=== PATIENT | male | born 1950 | race Two or more races ===

== ENCOUNTER 2020-12-04 23:24 | Observation (INO) | payer MEDICARE, SELFPAY ==
--- NOTE | 2020-12-04 23:41 | HP.PCM.HOS_ITS ---
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 He does report that he has had similar but less severe episodes over the last several weeks to months with activity, lasting ~ 30 minutes and completely resolving. Work-up in the OSH ED included: VS: AF, initially mildly tachycardic 113-->now HR 74, BP intially 162/100-->now 155/82, 96% on RA. CBC: WBC 10.8, Hgb 16.1, Plts 255 without marked L shift. CMP: Na 140, K 4.4, BUN/Cr 20/1.01, glucose 274, unremarkable hepatic profile. Trop: initial 41 high sensitivity (within normal)-->repeat after 2 hours 66 high sensitivity (normal range 0-76). EKG: ST with ? trigeminy, frequent PVCs, improved during admission with mild ST depression V4-V6 similar to prior comparison 09/2020 (asymptomatic HTN evaluation). CXR: No acute cardiopulmonary findings. BNP: 613 (Chronic trace BL LE edema). COVID PCR: negative and s/p vacciation double series. D-dimer: 200 (normal cutoff 230) Medications: SL NG trial (1 with resolution), already had ASA prior to arrival and NS. [facility] Medical History (Updated 12/05/20 @ 00:[address] Binta Mederos MD) Diabetes mellitus type II, uncontrolled Fracture of right hip requiring operative repair History of prostate cancer HLD (hyperlipidemia) HTN (hypertension) Obesity Family History (Updated 12/05/20 @ 00:[address] Binta Mederos MD) Mother Hypertension Father Hypertension CAD (coronary artery disease), Onset Age: 64 [place] with CAD Surgical History (Updated 12/05/20 @ 00:[address] Binta Mederos MD) History of transurethral resection of prostate Social History (Updated 12/05/20 @ 00:[address] Binta Mederos MD) household members: spouse and other details: Currently living separate secondary to COVID risk with hx brain cancer Smoking Status: Never smoker alcohol intake: never substance use type: does not use ROS ROS Narrative Admission Review of Systems: CONSTITUTIONAL: No weight loss, fever, chills, + weakness or fatigue. HEENT: Eyes: No visual loss, blurred vision, double vision or yellow sclerae. Ears, Nose, Throat: No hearing loss, sneezing, congestion, runny nose or sore throat. SKIN: No rash or itching, lesions, wounds. CARDIOVASCULAR: + chest pain, chest pressure or chest discomfort, edema, No palpitations, orthopnea, syncopal events. RESPIRATORY: + shortness of breath, No cough or sputum, wheezing, hemoptysis. GASTROINTESTINAL: No anorexia, nausea, vomiting or diarrhea, abdominal pain, melena, BRBPR. GENITOURINARY: No dysuria, frequency, urgency or retention. NEUROLOGICAL: No headache, dizziness, syncope, paralysis, ataxia, numbness or tingling in the extremities, focal weakness, change in bowel or bladder control, seizure. MUSCULOSKELETAL: No muscle, back pain, joint pain or stiffness. HEMATOLOGIC: No anemia, bleeding or bruising. LYMPHATICS: No enlarged nodes. No history of splenectomy. PSYCHIATRIC: + history of depression or anxiety. ENDOCRINOLOGIC: No reports of sweating, cold or heat intolerance. No polyuria or polydipsia. ALLERGIES: No history of asthma, hives, eczema or rhinitis. Physical Exam Narrative Physical Examination: General: awake, alert, oriented x 3 and cooperative, seated upright in the PCU bed in no apparent distress, no chest pain currently. Skin: normal color, turgor, no icterus, cyanosis. HEENT: AT/NC, EOMI, PERRLA, MMM, no carotid bruits or JVD noted. Lungs: CTA bilaterally, moderate effort, mild decrease BL bases, no rales, ronchi or wheezing. Heart: Regular rate and rhythm; no gallop, rub audible. Abdomen: soft, obese, NTTP, ND, distant normal BS, no HSM. Extremities: no cyanosis, no clubbing, mild BL 1+ ankle to distal hampton chronic edema, hairless but he reports having shaved. Neurological: patient awake, alert, oriented x 3, cognitive function intact; pupils equally reactive to light and accommodation, cranial nerves II-XII grossly normal, moving all 4 extremities, no focal deficits, strength preserved. Psychiatric: affect appears normal, no acute evidence of depressive or anxiety feelings. Assessment & Plan Assessment/Plan (1) Chest pain: QUALIFIERS: Chest pain type: unspecified Qualified Code(s): R07.9 - Chest pain, unspecified PLAN: The patient is a 69 y/o M w/ PMHx: HTN, HLD, Diabetes mellitus type II, Bipolar disorder, Hx prostate CA s/p treatment in remission, no CAD hx who presents to the [facility] as direct admission from [facility] on 12/04/20 with history ongoing episodes intermittent chest pain. 1. Chest Pain: EKG in OSH ED w/ ST with ? trigeminy, frequent PVCs, improved during admission with mild ST depression V4-V6 similar to prior comparison 09/2020, CXR w/ no acute cardiopulmonary findings, initial 41 high sensitivity (within normal)-->repeat after 2 hours 66 high sensitivity (normal range 0-76). Will admit to PCU, place on a monitored bed to assure no acute myocardial inf arction with serial cardiac enzymes and EKGs. If repeat serial enzymes and EKG remain unremarkable will obtain AM cardiac stress testing. Mag pending. FLP in AM. ASA, NG, morphine. 2. Hypertension: Continue home regimen including losartan, Lasix with hold parameters, altered and add regimen pending continue BP trending is elevated at outside facility, PRN hydralazine. 3. Hyperlipidemia: Continue home statin regimen. AM FLP. 4. Diabetes mellitus type II: Notes not on regimen, has upcoming PCP visit to discuss treatment, will allow ADA diet until NPO at midnight, HgBA1c requested, accu checks w/ ISS. 5. Bipolar disorder: Will continue home depakote regimen, obtain level to be cautious. 6. History of Prostate CA: s/p resection, in remission. 7. DVT prophylaxis: SCDs, lovenox. Visit Charges OBSV E&M: 89533 Initial observation care L3
[2020-12-04 23:45] VITALS: BP 187/87; PULSE 87; RESP 18; TEMP 36.8; O2SAT 97
[2020-12-05] VITALS (16 sets, daily range): BP systolic 126–182; BP diastolic 50–132; PULSE 61–96; RESP 16–18; TEMP 36.4–36.7; O2SAT 94–99; BMI 38.9
--- NOTE | 2020-12-05 00:23 | EKG12_ITS ---
Test Reason : CP ADMIT Blood Pressure : / mmHG Vent. Rate : 084 BPM Atrial Rate : 084 BPM P-R Int : 202 ms QRS Dur : 086 ms QT Int : 390 ms P-R-T Axes : 064 068 082 degrees QTc Int : 460 ms Sinus rhythm with Premature supraventricular complexes Otherwise normal ECG No previous ECGs available Confirmed by STACIA WHATLEY, JAMES ([id number]), dictionary editor RIKA ALVAREZ ([id number]) on 12/10/2020 10:24:29 A M Referred By: GRISELDA Confirmed By:PETER PALOMO MD
[2020-12-05 00:38] LABS: Magnesium 2.2 mg/dL (1.6-2.6)
[2020-12-05] MEDS: Famotidine 20 MG Tablet PO (01:10)
[2020-12-05 01:30] LABS: Hemoglobin A1c 8.6 % (3.8-5.6)
[2020-12-05 01:37] LABS: Valproic Acid (Depakene) Level 23 ug/mL (50-100)
[2020-12-05 02:04] LABS: Prothrombin Time (Protime)PT. 12.3 SECONDS (11.7-14.9)
[2020-12-05 02:05] LABS: Partial Thromboplast Time 31.9 Seconds (24.1-36.2)
[2020-12-05] MEDS: hydrALAZINE 20 MG/ML Vial 10 MG IV (03:06)
[2020-12-05] MEDS: 0.9% Saline Lock 10 ML Syringe IV (03:06)
[2020-12-05] MEDS: Aspirin 81 MG TAB.CHEW PO (06:37)
[2020-12-05] MEDS: Losartan Potassium 50 MG Tablet PO (06:37)
[2020-12-05 06:41] LABS: Absolute Neutrophil Count 4.7 X10^3/uL (2.0-7.7); Basophil# 0.06 X10^3/uL; Basophil% 0.9 % (0-1); Eosinophil# 0.12 X10^3/uL; Eosinophils% 1.8 % (0-5); Hematocrit 46.9 % (40-54); Hemoglobin 15.1 g/dL (13.0-16.5); Mean Corp Hgb Conc 32.2 g/dL (32-36); Mean Corpuscular Hgb 28.9 pg (27.0-32.0); Mean Corpuscular Volume 89.8 fL (80-94); Mean Platelet Vol. 10.3 fl (6.2-12.0); NRBC Flagged by Analyzer 0 % (0-5); Neutrophil # 4.65 X10^3/uL (2.7-7.7); Platelet Count 216 K/mm3 (150-450); RBC Distribution Width CV 13.7 % (11.6-14.6); RBC Distribution Width SD 44.9 fl (35.1-43.9); Red Blood Count 5.22 M/mm3 (4.6-6.2); White Blood Count 6.7 K/mm3 (4.4-11.0)
[2020-12-05 06:45] LABS: Bedside Glucose 195 mg/dL (70-110)
[2020-12-05 07:32] LABS: ALB/GLOB Ratio 0.9 RATIO (0.9-2.4); AST(SGOT) 27 U/L (15-37); Alanine Aminotransfer ALT/SGPT 46 U/L (16-61); Albumin, Serum 3.7 g/dL (3.2-5.0); Alkaline Phosphatase 84 U/L (45-117); Anion Gap 5 (5-15); BUN 20 mg/dL (7-18); BUN/Creat Ratio 21.4 RATIO (10-20); Calcium,Total 9.4 mg/dL (8.5-10.1); Chloride 102 mmol/L (98-107); Cholesterol 138 mg/dL (200); Creatinine, Serum 0.93 mg/dL (0.70-1.30); EST Glomerular Filtration Rate 85 mL/min (>60); Est Glom Filt Rate - Afr Amer 103 mL/min (>60); Glucose 194 mg/dL (74-106); High Density Lipoprotein 36 mg/dL; Potassium 3.9 mmol/L (3.5-5.1); Protein, Total 7.7 g/dL (6.4-8.2); Sodium Level 138 mmol/L (136-145); Triglycerides 129 mg/dL; Very Low Density Lipoprotein 26 mg/dL (5-40)
--- NOTE | 2020-12-05 07:35 | PCM.CONS.C ---
Assessment & Plan Assessment/Plan (1) Chest pain: QUALIFIERS: Chest pain type: unspecified Qualified Code(s): R07.9 - Chest pain, unspecified PLAN: Patient presents with chest discomfort with exertion which is concerning for new onset angina. My recommendation at this time would be as his cardiac enzymes are normal to consider a left heart catheterization. The risk benefits and alternatives have been explained to him he understands and agrees to proceed. Depending on the findings further recommendations will be made. He would also continue with risk factor modification. Addendum: Cardiac catheterization demonstrated a calcified left main coronary artery with 50 to 60% distal stenosis Ostial left anterior descending artery 80% stenosis. Ramus intermedius with mild disease. Left circumflex artery with proximal 70% stenosis. Dominant right coronary artery with high-grade 95% proximal stenosis. Preserved left ventricular systolic function. Based on the above angiographic findings I would recommend that the patient undergo coronary artery bypass surgery. Arrangements for transfer of the patient will be made. (2) HTN (hypertension): PLAN: He appears to diagnosis of attention and has been on losartan in the past. He will continue the same. He will have the appropriate adjustments made to this medications afterwards. Thank you for allowing me to participate in the care of your patient. Please don't hesitate to call if any issues arise. HPI Consult Data Date of Consult: 12/05/20 HPI Narrative Reason for Consultation: Chest pain HPI Narrative: MELISSA REINOSO, is a 69 M who presents from [facility] as a transfer. He does have a history of hypertension, hyperlipidemia, diabetes mellitus,. He apparently has been having chest discomfort which started on the day of presentation. He was pushing a lawnmower when this happened. He described this as a heaviness associated with diaphoresis and shortness of breath. He took some aspirin at home and it appeared to have improved with rest. He presented to [facility] and was transferred here. Of note is the fact that he has had this episode a few times in the last few months. The patient is a 69 y/o M w/ PMHx: HTN, HLD, when he presented. His EKG had demonstrated sinus rhythm with frequent premature ventricular complexes. He is currently pain-free. [facility] Medical History (Updated 12/05/20 @ 07:[address] Niranjan Muhammad MD) Diabetes mellitus type II, uncontrolled Fracture of right hip requiring operative repair History of prostate cancer HLD (hyperlipidemia) HTN (hypertension) Obesity Home Medications divalproex 1,000 mg PO/SL QHS 12/05/20 [History Last Taken Unknown] losartan 50 mg DAILY 12/05/20 [History Last Taken Unknown] Allergy/AdvReac Type Severity Reaction Status Date / Time No Known Allergies Allergy Verified 12/05/20 00:27 Family History Mother Hypertension Father Hypertension CAD (coronary artery disease), Onset Age: 64 [place] with CAD Surgical History History of transurethral resection of prostate Social History household members: spouse and other details: Currently living separate secondary to COVID risk with hx brain cancer Smoking Status: Never smoker alcohol intake: never substance use type: does not use ROS Review of Systems ROS Unobtainable: Denies due to encephalopathy, due to endotracheal tube, due to mental condition, due to mental status or other Constitutional Constitutional: Reports as per HPI Eyes Eyes: Reports as per HPI ENT HEENT: Reports as per HPI Cardiovascular Cardiovascular: Reports chest pain with activity and dyspnea on exertion Respiratory/Chest Respiratory/Chest: Reports dyspnea on exertion Gastrointestinal Gastrointestinal: Reports as per HPI Genitourinary Genitourinary: Reports as per HPI Musculoskeletal Musculoskeletal: Reports as per HPI Integumentary Integumentary: Reports as per HPI Neurologic Neurologic: Reports as per HPI Psychiatric Psychiatric: Denies systems reviewed and no addt'l complaints, except as documented, as per HPI, none, abnormal sleep pattern, anhedonia, anxiety, auditory hallucinations, behavioral changes, change in appetite, change in libido, cognitive impairment, confusion, depression, difficulty concentrating, hallucinations, homicidal ideation, hopelessness, irritability, memory loss, mood swings, panic attacks, paranoia, suicidal ideation, suicidal thoughts, tactile hallucinations, visual hallucinations or other Endocrine Endocrinology: Reports as per HPI Hematologic/Lymphatic Hematologic/Lymphatic: Reports as per HPI Allergic/Immunologic Allergic/Immunologic: Reports as per HPI Physical Exam Const oriented x3 and healthy appearing Orientation / Consciousness: awake HEENT normocephalic Eyes PERRL and conjunctivae normal Neck supple, no JVD and no carotid bruits Chest inspection of chest normal Resp normal respiratory effort and clear to auscultation bilaterally Cardio Palpation: normal PMI Rate: regular rate Rhythm: regular rhythm Heart Sounds: S1 normal and S2 normal Peripheral Pulses: pulses 2+ throughout GI normal to inspection, nondistended, normoactive bowel sounds Extremity normal to inspection and no clubbing, cyanosis or edema Psych mental status grossly normal
--- NOTE | 2020-12-05 08:30 | CL.D_ITS ---
Patient Name: MELISSA REINOSO Study Date: 12/05/2020 Performing: Niranjan Muhammad MD Ht: 67 inches 170 cm : 1950 Wt: 249.4 lbs 113 kg Age: 69 Gender: male BSA: 2.22 PROCEDURE(S) PERFORMED [id number]/COR/LV CLINICAL PROFILE AND INDICATIONS Indications: New Onset Angina <= 2 months Heart Failure: None Stress/Imaging Stress/Image Study Performed: No CAD Presentations: Unstable angina. CONCLUSIONS Severe triple-vessel disease involving the distal left main coronary artery with calcification, the p roximal LAD with a high-grade stenosis, proximal circumflex artery, and a high-grade proximal right c oronary artery with preserved left ventricular systolic function. RECOMMENDATIONS Surgery consult for coronary revascularization DESCRIPTION OF PROCEDURE The patient arrived to the procedure lab. The risks and benefits of the procedure as well as a full d escription of our services here and current unavailability of surgical backup were fully explained to the patient and/or their significant other prior to the catheterization. The Timeout was completed, verifying the correct patient and procedure. The patient's procedural site was prepped and draped in the usual fashion. Local anesthetic was given subcutaneously to right radial region with Lidocaine 2% . Using a modified Seldinger technique, arterial access was obtained via the right radial artery, a 6 Fr sheath was inserted. Right Coronary Artery selective angiography was then performed in multiple v iews using a 5 Fr. 4.0 Blauvelt catheter. Left Coronary Artery selective angiography was performed in mu ltiple views using a 5 Fr. 4.0 Blauvelt catheter. Left Ventriculography was performed in GARCIA projection using a 5 Fr. Pigtail catheter. LV to AO pullback pressures were then recorded.The arterial sheath was pulled and a TR Band was applied for hemostasis 9cc air CORONARY ANGIOGRAPHY DOMINANCE: Right Dominant LEFT HEART ASSESSMENT Left Ventricular Ejection Fraction: by LV Gram 60 % Normal LV wall motion Normal Left Ventricular systolic function LEFT MAIN: Moderate calcification, 60 % Stenosis LEFT ANTERIOR DESCENDING ARTERY: OSTIAL LAD: 80 % Stenosis PROX LAD: Moderate calcification CIRCUMFLEX ARTERY: PROX CIRC: 75 % Stenosis RAMUS: Mild luminal irregularities RIGHT CORONARY ARTERY: PROX RCA: 95 % Stenosis COMPLICATIONS No Complications PROCEDURE MEDICATIONS Fentanyl 50 mcg IV Versed 1 mg IV Oxygen: 2 L/min via nasal cannula Heparin diluted in 23cc Heparinized saline. Patient given 10cc IA of this solution. 12/05/2020 07:57: 48 Verapamil 2.5mg, Ntg 100mcgs, 2000 units of Heparin diluted in 23cc Heparinized saline. Patient give n 10cc IA of this solution. 12/05/2020 07:57:48 SUMMARY OF HEMODYNAMIC DATA Time AIR REST ECG 07:37:07 AO 148/88 (112) SA 08:04:01 AO 147/94 (115) 08:04:10 LV 152/13, 18 08:10:55 LV 148/14, 18 08:11:03 LV 152/17, 25 08:11:44 LVp 151/15, 19 08:11:51 AOp 159/87 (120) 08:11:56 08:24:32 Signed By Niranjan Muhammad MD On 12/05/2020 08:29:03 Niranjan Muhammad MD
--- NOTE | 2020-12-05 10:23 | NURSING ---
This RN called report to RN @ [facility]. Transport to be here @ 1030.
--- NOTE | 2020-12-05 10:53 | DS.PCM_ITS ---
Providers Date of Admission: 12/04/20 Primary Care Physician: Caroline Primary Care Phys Consultations 12/05/20 01:50 Consult: Cardiology Routine Consulting Provider: Niranjan Muhammad Reason for Consult: elevated troponin EMERGENT Consult: No MD Notified: Yes Date Notified:: 12/05/20 Time Notified: 01:54 Method of Notification: Provider Initiated Method of Consult:: In-Person Reason For Visit: CHEST PAIN Diagnosis Discharge Diagnosis (1) Chest pain: Status: Acute Code(s): R07.9 - Chest pain, unspecified Qualifiers: Chest pain type: unspecified Qualified Code(s): R07.9 - Chest pain, unspecified (2) HTN (hypertension): Status: Inactive Code(s): I10 - Essential (primary) hypertension (3) Triple vessel coronary artery disease: Status: Acute Code(s): I25.10 - Atherosclerotic heart disease of [place] dehe coronary artery without angina pectoris (4) Unstable angina: Status: Acute Code(s): I20.0 - Unstable angina Medications at Discharge Home Medications aspirin 81 mg PO DAILY@0800 #0 tab 12/05/20 divalproex 1,000 mg PO/SL QHS 12/05/20 losartan 50 mg DAILY 12/05/20 Hospital Course Summary of Care Provided Minutes Spent on Discharge: 35 Hospital Course: Patient is a 69-year-old gentleman with past medical history segment for hypertension, dyslipidemia diabetes mellitus type 2 who presented with chest pain 1. Chest pain secondary to unstable angina ?Treatment initiated per protocol consult placed to cardiology patient underwent left heart catheterization with findings as below Ostial left anterior descending artery 80% stenosis. Ramus intermedius with mild disease. Left circumflex artery with proximal 70% stenosis. Dominant right coronary artery with high-grade 95% proximal stenosis. Preserved left ventricular systolic function. Dr. Muhammad with cardiology who saw the patient in consultation did recommend and arrange for patient to be transferred to [facility] in [place] for patient to undergo CABG 2. Hypertension - Blood pressure controlled, home medications continued with dose adjustment as needed 3. Diabetes mellitus type 2 ?Was placed on Accu-Cheks before meals and at bedtime with sliding scale coverage 4. Bipolar disorder ?Stable 5. History of prostate cancer ?Currently in remission Physical Exam Narrative GENERAL: cooperative HEENT: Atraumatic; EYES; Anicteric, Normal Conjunctiva NECK; supple, normal thyroid, RESPIRATORY: Diminished to auscultation CARDIOVASCULAR: Regular S1 S2, GI: soft, normoactive bowel sounds, : No Renal angle tenderness; EXTREMITIES: No edema, no clubbing, MUSCULOSKELETAL: no muscle waisting NEURO: Awake; no lateralizing signs. SKIN: No Rash PSYCH; Flat affect ABG / Lab / Microbiology Data Result Diagrams: 12/05/20 06:30 12/05/20 06:30 D/C Instructions Discharge Diet: Low fat / Low cholesterol and 1800 Calorie Control Diet Meaningful Use Info Meaningful Use Diagnoses (Choose all that apply): None applicable Discharge Plan Admission Admit Date/Time: 12/04/20 23:24 Primary Reason for Your Visit: Unstable angina Attending Provider: Jose Lau Primary Care Provider: Care Physician,No Primary Consulting Providers: Niranjan Muhammad Instructions Patient Instructions: ED Chest Pain, Noncardiac Discharge Orders/Prescriptions Prescriptions: New aspirin 81 mg Tablet,Chewable 81 mg PO DAILY@0800 Qty: 0 RF: 0 Continued divalproex tablet 1,000 mg PO/SL QHS RF: 0 losartan 50 mg DAILY RF: 0 Referrals / Follow Up: Care Physician,No Primary [Primary Care Provider] - Disposition Disposition (needs filled in before D/C Order can be placed): Acute Care Hospital Visit Charges OBSV E&M: 83517 Observation care discharge
== END 2020-12-05 11:10 | disposition short-term general hospital (02) ==
PROVIDERS: Nurse Practitioner Family; Admitting Provider Family Medicine; Visit Provider Internal Medicine
DX: I25.110 Atherosclerotic heart disease of native coronary artery with unstable angina pectoris (principal); I10 Essential (primary) hypertension; E78.5 Hyperlipidemia, unspecified; F31.9 Bipolar disorder, unspecified; Z85.46 Personal history of malignant neoplasm of prostate; E66.9 Obesity, unspecified; Z68.38 Body mass index [BMI] 38.0-38.9, adult; Z79.899 Other long term (current) drug therapy
CPT/HCPCS: 36415; 80053; 80061; 80164; 82962; 83036; 83735; 84484; 85025; 85610; 85730; 93005; 93458; 96374; 99152; 99153; 99218; Q9967; A4216; C1769; C1894; G0378